=== PATIENT | female | born 1945 | race Two or more races ===

== ENCOUNTER → 2017-08-28 | Outpatient (CLI) | payer MEDICARE, OTHER ==
[~2017-08-28] MED LIST: CITA10TA59; HYDR12.56
[2017-08-28 14:51] LABS: Nucleated Red Blood Cells % 0.1 %
[2017-08-28 14:57] LABS: Basophils # (auto) 0.1 uL; Basophils % (auto) 1.7 % (0.0-2.0); Eosinophils # (auto) 0.7 uL; Eosinophils % (auto) 12.4 % (0.0-7.0); Hematocrit 40.1 % (36.0-46.0); Hemoglobin 13.5 g/dL (12.2-16.2); Lymphocytes # (auto) 1.3 uL; Lymphocytes % (auto) 23.3 % (10.0-50.0); Mean Corpuscular Hgb Conc. 33.6 g/dL (32.0-36.0); Mean Corpuscular Volume 86.3 fL (80.0-100.0); Monocytes # (auto) 0.2 uL; Neutrophils # (auto) 3.5 uL; Neutrophils % (auto) 59.6 % (37.0-80.0); Platelet Count (auto) 235 10^3/uL (140-450); Red Blood Cells 4.64 10^6/uL (4.0-5.20); Red Cell Distribution Width 14.3 % (11.8-14.3); White Blood Cell 5.8 10^3/uL (4.4-10.8)
[2017-08-28 15:09] LABS: Urine Bacteria NONE SEEN /hpf (None Seen); Urine Blood Negative /uL (Negative); Urine Mucus FEW (None Seen); Urine Specific Gravity 1.029 (1.001-1.035); Urine WBC 4 /hpf (0 - 5)
[2017-08-28 15:22] LABS: Albumin 3.5 g/dL (3.4-5.0); BUN/Creatinine Ratio 19.7; Bilirubin, Total 0.9 mg/dL (0.2-1.0); Calcium 9.1 mg/dL (8.5-10.1); Potassium 3.3 mmol/L (3.5-5.1); Total Protein 7.7 g/dL (6.4-8.2)
== END | disposition home or self-care (01) ==
LOC: LAB 14:26
PROVIDERS: ATTEND Family Medicine
DX: I10 Essential (primary) hypertension (principal); K21.9 Gastro-esophageal reflux disease without esophagitis; F32.4 Major depressive disorder, single episode, in partial remission; Z79.899 Other long term (current) drug therapy
CPT/HCPCS: 36415; 80053; 80061; 81001; 82306; 82607; 83036; 84443; 85025

== ENCOUNTER 2020-12-25 14:02 | Inpatient (IN) | payer MEDICARE, OTHER ==
[~2020-12-25] VITALS: Ht 157.5 cm; Wt 89.7 kg
[~2020-12-25 14:02] MED LIST changes: -CITA10TA59; +CITA10TA8
[2020-12-25 15:10] LABS: Basophils # (auto) 0 10 ^3/uL (0-0.2); Basophils % (auto) 0.6 % (0.0-2.0); Eosinophils # (auto) 0 10 ^3/uL (0-0.8); Eosinophils % (auto) 0.1 % (0.0-7.0); Hematocrit 42.3 % (36.0-46.0); Hemoglobin 14.2 g/dL (12.2-16.2); Lymphocytes # (auto) 0.8 10 ^3/uL (0.4-5.4); Lymphocytes % (auto) 19.1 % (10.0-50.0); Mean Corpuscular Hgb Conc. 33.7 g/dL (32.0-36.0); Mean Corpuscular Volume 83.1 fL (80.0-100.0); Monocytes # (auto) 0.3 10 ^3/uL (0-1.3); Neutrophils % (auto) 73.2 % (37.0-80.0); Nucleated Red Blood Cells % 0.1 %; Red Blood Cells 5.09 10^6/uL (4.0-5.20); Red Cell Distribution Width 15.7 % (11.8-14.3); White Blood Cell 4.1 10^3/uL (4.4-10.8)
[2020-12-25 15:31] LABS: Alanine Aminotransferase 45 U/L (13-56); Anion Gap 10 (5-15); Aspartate Aminotransferase 97 U/L (15-37); BUN/Creatinine Ratio 33.3; Blood Urea Nitrogen 26 mg/dL (7-18); Calcium 8.5 mg/dL (8.5-10.1); Carbon Dioxide 21 mmol/L (21-32); Chloride 103 mmol/L (98-107); GFR African American 93 mL/min; GFR Non-African American 77 mL/min; Glucose 118 mg/dL (74-106); Magnesium 2.6 mg/dL (1.6-2.6); Potassium 3.7 mmol/L (3.5-5.1); Sodium 134 mmol/L (136-145)
[2020-12-25 15:36] LABS: Alkaline Phosphatase 47 U/L (45-117); Bilirubin, Total 0.9 mg/dL (0.2-1.0); Total Protein 7.4 g/dL (6.4-8.2)
[2020-12-25] MEDS ORDERED: SODIUM CHLORIDE 0.9% 1,000 ML IVB ONE (15:45)
[2020-12-25] MEDS ORDERED: AZITHROMYCIN 500MG/ 250ML 250 ML IV ONE (15:45)
[2020-12-25] MEDS ORDERED: SODIUM CHLORIDE 0.9% 1,000 ML IV ONE (15:45)
[2020-12-25] MEDS ORDERED: DexAMETHasone SOD PHOS 10MG/1ML VIAL INJ IV ONE (16:00)
[2020-12-25 16:05] LABS: INR 1.04 (0.9-1.15); Partial Thromboplastin Time 27.3 sec (23.0-31.2)
[2020-12-25] MEDS: ASCORBIC ACID 500 MG TAB PO ONE ×2 (16:23→18:20)
[2020-12-25] MEDS: CHOLECALCIFEROL (VITD3) 2,000 UNIT CAP/TAB PO ONE ×2 (16:23→18:20)
[2020-12-25] MEDS: ZINC SULFATE 220mg CAP or TAB PO ONE ×2 (16:24→18:20)
[2020-12-25] MEDS: hydrOXYchloroQUINE SULFATE 200 MG TAB PO ONE ×2 (16:24→18:20)
[2020-12-25] MEDS ORDERED: ONDANSETRON HCL 4 MG/2 ML VIAL IV ONE (16:45)
[2020-12-25] MEDS ORDERED: traMADol HCL 50 MG TAB PO PRN (18:00)
[2020-12-25] MEDS ORDERED: NITROGLYCERIN 0.4 MG SL TAB SL PRN (18:00)
[2020-12-25] MEDS ORDERED: DEXTROSE (50%) 50ML SYRG IV PRN (18:00)
[2020-12-25] MEDS ORDERED: ALBUTEROL SULF HFA 90MCG INH 200DOSE IN PRN (18:00)
[2020-12-25] MEDS ORDERED: TEMAZEPAM 15 MG CAP PO PRN (18:00)
[2020-12-25] MEDS ORDERED: LACTULOSE 20Gm/30ML SOLN PO PRN (18:00)
[2020-12-25] MEDS ORDERED: ONDANSETRON HCL 4 MG/2 ML VIAL IV PRN (18:00)
[2020-12-25] MEDS ORDERED: MORPHINE SULF INJ 2 MG/ML SYRINGE 1ML IV PRN (18:00)
[2020-12-25] MEDS ORDERED: REMDESIVIR PER PHARMACY 0 ML IV SCH (18:00)
[2020-12-25] MEDS ORDERED: IPRATROPIUM BROMIDE HFA AER IN SCH (18:00)
[2020-12-25] MEDS: ZINC SULFATE 220mg CAP or TAB PO SCH (18:09)
[2020-12-25] MEDS: ASCORBIC ACID 1,000 MG TAB PO SCH (18:21)
[2020-12-25] MEDS: CHOLECALCIFEROL (VITD3) 2,000 UNIT CAP/TAB PO SCH (18:21)
[2020-12-25 19:11] LABS: Urine Bacteria FEW /hpf (None Seen); Urine Blood Negative /uL (Negative); Urine Mucus FEW (None Seen); Urine Specific Gravity 1.025 (1.001-1.035); Urine WBC 6 /hpf (0 - 5)
[2020-12-25 19:58] VITALS: BP 112/52
[2020-12-25] MEDS ORDERED: REMDESIVIR 200 MG in NS 210ml LOADING DOSE ADULT IV ONE (20:00)
[2020-12-25] MEDS: levoFLOXacin 500MG 100 ML IV SCH (21:55)
[2020-12-25 22:00] VITALS: BP 112/52
[2020-12-25] MEDS ORDERED: BUDESONIDE (INHALATION) 180 MCG IH IN SCH (22:00)
[2020-12-25] MEDS: ACCU-CHEK COMFORT CURVE STRIP VI SCH (22:00)
[2020-12-25] MEDS: ENOXAPARIN SOD 40 MG/0.4 ML SYRINGE SC SCH (22:02)
[2020-12-25] MEDS: FLORASTOR (S. BOULARDII) 250 MG CAP PO SCH (22:02)
[2020-12-26] VITALS (8 sets, daily range): BP systolic 90–106; BP diastolic 51–68
[2020-12-26] MEDS ORDERED: TRIATAB3 PO (04:50)
[2020-12-26] MEDS ORDERED: ZOLP10TA6 PO (04:50)
[2020-12-26] MEDS ORDERED: OMEP20TA PO (05:04)
[2020-12-26] MEDS: ACCU-CHEK COMFORT CURVE STRIP VI SCH ×2 (05:43→11:29)
[2020-12-26 06:41] LABS: Basophils # (auto) 0 10 ^3/uL (0-0.2); Basophils % (auto) 0.1 % (0.0-2.0); Eosinophils # (auto) 0 10 ^3/uL (0-0.8); Hematocrit 37.4 % (36.0-46.0); Hemoglobin 12.7 g/dL (12.2-16.2); Lymphocytes # (auto) 0.6 10 ^3/uL (0.4-5.4); Lymphocytes % (auto) 26.8 % (10.0-50.0); Mean Corpuscular Hemoglobin 28.1 pg (28.0-32.0); Mean Corpuscular Hgb Conc. 34.1 g/dL (32.0-36.0); Mean Corpuscular Volume 82.5 fL (80.0-100.0); Monocytes # (auto) 0.2 10 ^3/uL (0-1.3); Monocytes % (auto) 7.6 % (0.0-12.0); Neutrophils # (auto) 1.5 10 ^3/uL (1.6-8.6); Neutrophils % (auto) 65.5 % (37.0-80.0); Nucleated Red Blood Cells % 0.2 %; Red Blood Cells 4.53 10^6/uL (4.0-5.20); Red Cell Distribution Width 15.4 % (11.8-14.3); White Blood Cell 2.4 10^3/uL (4.4-10.8)
[2020-12-26 07:00] LABS: Potassium 3.3 mmol/L (3.5-5.1)
[2020-12-26 07:09] LABS: Albumin 2.4 g/dL (3.4-5.0); BUN/Creatinine Ratio 30.9; Calcium 7.8 mg/dL (8.5-10.1)
[2020-12-26 07:17] LABS: Bilirubin, Total 0.5 mg/dL (0.2-1.0)
[2020-12-26] MEDS: ZINC SULFATE 220mg CAP or TAB PO SCH (10:27)
[2020-12-26] MEDS: DexAMETHasone SOD PHOS 10MG/1ML VIAL INJ IV SCH (10:28)
[2020-12-26] MEDS: ASCORBIC ACID 1,000 MG TAB PO SCH (10:28)
[2020-12-26] MEDS: FLORASTOR (S. BOULARDII) 250 MG CAP PO SCH (10:28)
[2020-12-26] MEDS: PANTOPRAZOLE 40 MG TAB PO SCH (10:28)
[2020-12-26] MEDS: ENOXAPARIN SOD 40 MG/0.4 ML SYRINGE SC SCH ×2 (10:28→23:10)
[2020-12-26] MEDS: CHOLECALCIFEROL (VITD3) 2,000 UNIT CAP/TAB PO SCH (10:28)
[2020-12-26] MEDS ORDERED: FUROSEMIDE 20 MG/2 ML VIAL IV ONE (12:45)
[2020-12-26] MEDS: REMDESIVIR 100mg 100 MG in SODIUM CHL 0.9% 230 ML IV SCH (15:33)
[2020-12-26] MEDS: IPRATROPIUM BROMIDE HFA AER IN SCH ×2 (18:00→22:00)
[2020-12-26] MEDS: ACETAMINOPHEN 500 MG TAB PO PRN (18:33)
[2020-12-26] MEDS: levoFLOXacin 500MG 100 ML IV SCH (20:14)
[2020-12-26] MEDS: THROAT LOZENGES(CEPASTAT) MT PRN (21:53)
[2020-12-26] MEDS: BUDESONIDE (INHALATION) 180 MCG IH IN SCH (22:00)
[2020-12-26] MEDS ORDERED: BUDESONIDE (INHALATION) 180 MCG IH IN SCH (22:00)
[2020-12-26] MEDS: ZOLPIDEM TARTRATE 5 MG TAB PO PRN (23:10)
[2020-12-27 05:00] VITALS: BP 84/50
[2020-12-27] MEDS: IPRATROPIUM BROMIDE HFA AER IN SCH ×4 (06:00→22:11)
[2020-12-27] MEDS ORDERED: ALBUMIN 5% 250 ML IV ONE (06:45)
[2020-12-27] MEDS ORDERED: POTASSIUM CHL 20 Meq TABLET PO ONE (06:45)
[2020-12-27 09:00] VITALS: BP 88/57
[2020-12-27] MEDS: DexAMETHasone SOD PHOS 10MG/1ML VIAL INJ IV SCH (09:01)
[2020-12-27] MEDS: FUROSEMIDE 20 MG/2 ML VIAL IV SCH (09:01)
[2020-12-27] MEDS: CHOLECALCIFEROL (VITD3) 2,000 UNIT CAP/TAB PO SCH (09:02)
[2020-12-27] MEDS: ENOXAPARIN SOD 40 MG/0.4 ML SYRINGE SC SCH ×2 (09:02→22:19)
[2020-12-27] MEDS: ZINC SULFATE 220mg CAP or TAB PO SCH (09:02)
[2020-12-27] MEDS: PANTOPRAZOLE 40 MG TAB PO SCH (09:02)
[2020-12-27] MEDS: ASCORBIC ACID 1,000 MG TAB PO SCH (09:02)
[2020-12-27] MEDS: BUDESONIDE (INHALATION) 180 MCG IH IN SCH ×2 (12:06→22:10)
[2020-12-27] MEDS: ALBUTEROL SULF HFA 90MCG INH 200DOSE IN PRN ×2 (12:07→22:10)
[2020-12-27 13:00] VITALS: BP 93/57
[2020-12-27] MEDS: REMDESIVIR 100mg 100 MG in SODIUM CHL 0.9% 230 ML IV SCH (15:00)
[2020-12-27 17:00] VITALS: BP 95/60
[2020-12-27] MEDS: levoFLOXacin 500MG 100 ML IV SCH (20:03)
[2020-12-27 22:00] VITALS: BP 101/62
[2020-12-28] MEDS: ZOLPIDEM TARTRATE 5 MG TAB PO PRN ×2 (00:05→22:24)
[2020-12-28] MEDS: ACETAMINOPHEN 500 MG TAB PO PRN ×2 (00:30→22:39)
[2020-12-28 05:00] VITALS: BP 96/53
[2020-12-28] MEDS: ALBUTEROL SULF HFA 90MCG INH 200DOSE IN PRN (07:47)
[2020-12-28] MEDS: BUDESONIDE (INHALATION) 180 MCG IH IN SCH ×2 (07:47→18:25)
[2020-12-28] MEDS: IPRATROPIUM BROMIDE HFA AER IN SCH ×4 (07:48→22:39)
[2020-12-28] MEDS: FUROSEMIDE 20 MG/2 ML VIAL IV SCH (08:58)
[2020-12-28 09:00] VITALS: BP 87/53
[2020-12-28] MEDS: DexAMETHasone SOD PHOS 10MG/1ML VIAL INJ IV SCH (09:15)
[2020-12-28] MEDS: CHOLECALCIFEROL (VITD3) 2,000 UNIT CAP/TAB PO SCH (09:16)
[2020-12-28] MEDS: ZINC SULFATE 220mg CAP or TAB PO SCH (09:16)
[2020-12-28] MEDS: ENOXAPARIN SOD 40 MG/0.4 ML SYRINGE SC SCH ×2 (09:16→22:23)
[2020-12-28] MEDS: PANTOPRAZOLE 40 MG TAB PO SCH (09:16)
[2020-12-28] MEDS: ASCORBIC ACID 1,000 MG TAB PO SCH (09:16)
[2020-12-28] MEDS: MIDODRINE HCL 10 MG TAB PO SCH ×2 (11:33→18:08)
[2020-12-28 13:00] VITALS: BP 104/65
[2020-12-28] MEDS ORDERED: POTASSIUM CHL 10 Meq TABLET PO ONE (13:45)
[2020-12-28] MEDS: REMDESIVIR 100mg 100 MG in SODIUM CHL 0.9% 230 ML IV SCH (15:22)
[2020-12-28 17:00] VITALS: BP 112/71
[2020-12-28 22:00] VITALS: BP 117/60
[2020-12-28] MEDS: levoFLOXacin 500MG 100 ML IV SCH (22:23)
[2020-12-29 05:00] VITALS: BP 96/65
[2020-12-29 06:13] LABS: Basophils # (auto) 0 10 ^3/uL (0-0.2); Basophils % (auto) 0.2 % (0.0-2.0); Eosinophils # (auto) 0 10 ^3/uL (0-0.8); Eosinophils % (auto) 0.6 % (0.0-7.0); Hematocrit 36.6 % (36.0-46.0); Hemoglobin 12.5 g/dL (12.2-16.2); Lymphocytes % (auto) 18.7 % (10.0-50.0); Mean Corpuscular Hemoglobin 28.4 pg (28.0-32.0); Mean Corpuscular Hgb Conc. 34.1 g/dL (32.0-36.0); Mean Corpuscular Volume 83.3 fL (80.0-100.0); Monocytes # (auto) 0.4 10 ^3/uL (0-1.3); Monocytes % (auto) 6.5 % (0.0-12.0); Neutrophils # (auto) 4.1 10 ^3/uL (1.6-8.6); Red Blood Cells 4.39 10^6/uL (4.0-5.20); Red Cell Distribution Width 15.3 % (11.8-14.3); White Blood Cell 5.6 10^3/uL (4.4-10.8)
[2020-12-29] MEDS: MIDODRINE HCL 10 MG TAB PO SCH ×3 (06:20→17:36)
[2020-12-29 06:37] LABS: Potassium 3.5 mmol/L (3.5-5.1)
[2020-12-29 06:46] LABS: Albumin 2.2 g/dL (3.4-5.0); BUN/Creatinine Ratio 43.5; Bilirubin, Total 0.7 mg/dL (0.2-1.0); Total Protein 5.6 g/dL (6.4-8.2)
[2020-12-29] MEDS: BUDESONIDE (INHALATION) 180 MCG IH IN SCH ×2 (07:50→19:01)
[2020-12-29] MEDS: IPRATROPIUM BROMIDE HFA AER IN SCH ×4 (07:50→22:00)
[2020-12-29 09:00] VITALS: BP 133/76
[2020-12-29] MEDS: FUROSEMIDE 20 MG/2 ML VIAL IV SCH (09:44)
[2020-12-29] MEDS: ZINC SULFATE 220mg CAP or TAB PO SCH (09:44)
[2020-12-29] MEDS: DexAMETHasone SOD PHOS 10MG/1ML VIAL INJ IV SCH (09:44)
[2020-12-29] MEDS: ASCORBIC ACID 1,000 MG TAB PO SCH (09:44)
[2020-12-29] MEDS: PANTOPRAZOLE 40 MG TAB PO SCH (09:44)
[2020-12-29] MEDS: ENOXAPARIN SOD 40 MG/0.4 ML SYRINGE SC SCH ×2 (09:45→21:51)
[2020-12-29] MEDS: CHOLECALCIFEROL (VITD3) 2,000 UNIT CAP/TAB PO SCH (09:45)
[2020-12-29 13:00] VITALS: BP 90/52
[2020-12-29] MEDS: REMDESIVIR 100mg 100 MG in SODIUM CHL 0.9% 230 ML IV SCH (14:49)
[2020-12-29 17:00] VITALS: BP 102/58
[2020-12-29] MEDS: Ensure Enlive Strawberry 8oz Bottle PO SCH (18:21)
[2020-12-29] MEDS: ALBUTEROL SULF HFA 90MCG INH 200DOSE IN PRN (19:01)
[2020-12-29] MEDS: levoFLOXacin 500MG 100 ML IV SCH (20:25)
[2020-12-29] MEDS: ZOLPIDEM TARTRATE 5 MG TAB PO PRN (21:51)
[2020-12-29 22:00] VITALS: BP 101/54
[2020-12-30 05:00] VITALS: BP 99/65
[2020-12-30] MEDS: MIDODRINE HCL 10 MG TAB PO SCH ×3 (06:00→17:02)
[2020-12-30] MEDS: BUDESONIDE (INHALATION) 180 MCG IH IN SCH ×2 (08:56→19:02)
[2020-12-30] MEDS: ALBUTEROL SULF HFA 90MCG INH 200DOSE IN PRN ×2 (08:56→21:28)
[2020-12-30] MEDS: IPRATROPIUM BROMIDE HFA AER IN SCH ×4 (08:56→21:27)
[2020-12-30 09:00] VITALS: BP 109/60
[2020-12-30] MEDS: ZINC SULFATE 220mg CAP or TAB PO SCH (09:24)
[2020-12-30] MEDS: Ensure Enlive Strawberry 8oz Bottle PO SCH ×2 (09:24→17:50)
[2020-12-30] MEDS: FUROSEMIDE 20 MG/2 ML VIAL IV SCH (09:24)
[2020-12-30] MEDS: DexAMETHasone SOD PHOS 10MG/1ML VIAL INJ IV SCH (09:24)
[2020-12-30] MEDS: ENOXAPARIN SOD 40 MG/0.4 ML SYRINGE SC SCH ×2 (09:25→21:49)
[2020-12-30] MEDS: ASCORBIC ACID 1,000 MG TAB PO SCH (09:25)
[2020-12-30] MEDS: CHOLECALCIFEROL (VITD3) 2,000 UNIT CAP/TAB PO SCH (09:25)
[2020-12-30] MEDS: PANTOPRAZOLE 40 MG TAB PO SCH (09:25)
[2020-12-30 13:00] VITALS: BP 100/62
[2020-12-30] MEDS: REMDESIVIR 100mg 100 MG in SODIUM CHL 0.9% 230 ML IV SCH (14:50)
[2020-12-30 16:40] VITALS: BP 107/55
[2020-12-30 20:00] VITALS: BP 103/56
[2020-12-30] MEDS: levoFLOXacin 500MG 100 ML IV SCH (20:16)
[2020-12-30] MEDS: ZOLPIDEM TARTRATE 5 MG TAB PO PRN (21:50)
[2020-12-30 22:00] VITALS: BP 103/56
[2020-12-30] MEDS: THROAT LOZENGES(CEPASTAT) MT PRN (22:10)
[2020-12-31 05:00] VITALS: BP 100/63
[2020-12-31] MEDS: BUDESONIDE (INHALATION) 180 MCG IH IN SCH ×2 (06:56→23:23)
[2020-12-31] MEDS: ALBUTEROL SULF HFA 90MCG INH 200DOSE IN PRN ×2 (06:56→23:24)
[2020-12-31] MEDS: IPRATROPIUM BROMIDE HFA AER IN SCH ×4 (06:57→23:23)
[2020-12-31] MEDS: Ensure Enlive Strawberry 8oz Bottle PO SCH ×2 (08:20→17:40)
[2020-12-31 09:00] VITALS: BP 90/54
[2020-12-31] MEDS: ZINC SULFATE 220mg CAP or TAB PO SCH (09:16)
[2020-12-31] MEDS: PANTOPRAZOLE 40 MG TAB PO SCH (09:16)
[2020-12-31] MEDS: CHOLECALCIFEROL (VITD3) 2,000 UNIT CAP/TAB PO SCH (09:17)
[2020-12-31] MEDS: ASCORBIC ACID 1,000 MG TAB PO SCH (09:17)
[2020-12-31] MEDS: DexAMETHasone SOD PHOS 10MG/1ML VIAL INJ IV SCH (09:17)
[2020-12-31] MEDS: MIDODRINE HCL 10 MG TAB PO SCH ×2 (09:17→21:41)
[2020-12-31] MEDS: ENOXAPARIN SOD 40 MG/0.4 ML SYRINGE SC SCH ×2 (09:17→21:42)
[2020-12-31 12:57] VITALS: BP 95/58
[2020-12-31] MEDS ORDERED: ASCO10003 PO (15:02)
[2020-12-31] MEDS ORDERED: DEX4T PO (15:02)
[2020-12-31] MEDS ORDERED: ZINC220T6 PO (15:02)
[2020-12-31] MEDS ORDERED: ASPI-231 PO (15:02)
[2020-12-31] MEDS ORDERED: ALBUAER3 IN (15:02)
[2020-12-31] MEDS ORDERED: CHOL1CAP47 PO (15:02)
[2020-12-31 16:48] VITALS: BP 104/61
[2020-12-31] MEDS: ZOLPIDEM TARTRATE 5 MG TAB PO PRN (21:55)
[2020-12-31 22:00] VITALS: BP 101/50
[2021-01-01 05:00] VITALS: BP 97/58
[2021-01-01 07:00] LABS: Basophils # (auto) 0 10 ^3/uL (0-0.2); Basophils % (auto) 0.2 % (0.0-2.0); Eosinophils # (auto) 0 10 ^3/uL (0-0.8); Eosinophils % (auto) 0.2 % (0.0-7.0); Hematocrit 37.3 % (36.0-46.0); Hemoglobin 12.5 g/dL (12.2-16.2); Lymphocytes # (auto) 0.9 10 ^3/uL (0.4-5.4); Lymphocytes % (auto) 12.6 % (10.0-50.0); Mean Corpuscular Hemoglobin 28.4 pg (28.0-32.0); Mean Corpuscular Hgb Conc. 33.6 g/dL (32.0-36.0); Mean Corpuscular Volume 84.7 fL (80.0-100.0); Monocytes # (auto) 0.5 10 ^3/uL (0-1.3); Monocytes % (auto) 6.9 % (0.0-12.0); Neutrophils # (auto) 5.9 10 ^3/uL (1.6-8.6); Neutrophils % (auto) 80.1 % (37.0-80.0); Nucleated Red Blood Cells % 0.1 %; Red Blood Cells 4.41 10^6/uL (4.0-5.20); Red Cell Distribution Width 15.4 % (11.8-14.3); White Blood Cell 7.3 10^3/uL (4.4-10.8)
[2021-01-01 07:18] LABS: Potassium 3.9 mmol/L (3.5-5.1)
[2021-01-01 07:26] LABS: BUN/Creatinine Ratio 37.5; Calcium 8.3 mg/dL (8.5-10.1)
[2021-01-01] MEDS: Ensure Enlive Strawberry 8oz Bottle PO SCH ×2 (08:00→18:00)
[2021-01-01 09:00] VITALS: BP_SYST 103; BP_SYST 106; BP_DIAS 55; BP_DIAS 63
[2021-01-01] MEDS: DexAMETHasone SOD PHOS 10MG/1ML VIAL INJ IV SCH (09:14)
[2021-01-01] MEDS: ZINC SULFATE 220mg CAP or TAB PO SCH (09:15)
[2021-01-01] MEDS: MIDODRINE HCL 10 MG TAB PO SCH ×2 (09:15→22:02)
[2021-01-01] MEDS: PANTOPRAZOLE 40 MG TAB PO SCH (09:15)
[2021-01-01] MEDS: ASCORBIC ACID 1,000 MG TAB PO SCH (09:16)
[2021-01-01] MEDS: CHOLECALCIFEROL (VITD3) 2,000 UNIT CAP/TAB PO SCH (09:16)
[2021-01-01] MEDS: ENOXAPARIN SOD 40 MG/0.4 ML SYRINGE SC SCH ×2 (09:17→22:02)
[2021-01-01] MEDS: IPRATROPIUM BROMIDE HFA AER IN SCH ×4 (09:50→23:07)
[2021-01-01] MEDS: BUDESONIDE (INHALATION) 180 MCG IH IN SCH ×2 (10:56→23:07)
[2021-01-01 13:00] VITALS: BP_SYST 119; BP_SYST 124; BP_DIAS 65; BP_DIAS 78
[2021-01-01 17:00] VITALS: BP 105/60
[2021-01-01 22:00] VITALS: BP 108/64
[2021-01-01] MEDS: ZOLPIDEM TARTRATE 5 MG TAB PO PRN (22:03)
[2021-01-01] MEDS: ALBUTEROL SULF HFA 90MCG INH 200DOSE IN PRN (23:07)
[2021-01-02 05:40] VITALS: BP 115/56
[2021-01-02] MEDS: Ensure Enlive Strawberry 8oz Bottle PO SCH ×2 (08:00→18:25)
[2021-01-02] MEDS: BUDESONIDE (INHALATION) 180 MCG IH IN SCH ×2 (08:20→19:20)
[2021-01-02] MEDS: IPRATROPIUM BROMIDE HFA AER IN SCH ×3 (08:20→22:40)
[2021-01-02] MEDS: ALBUTEROL SULF HFA 90MCG INH 200DOSE IN PRN ×3 (08:20→19:20)
[2021-01-02 09:00] VITALS: BP 97/60
[2021-01-02] MEDS: DexAMETHasone SOD PHOS 10MG/1ML VIAL INJ IV SCH (09:11)
[2021-01-02] MEDS: ASCORBIC ACID 1,000 MG TAB PO SCH (09:12)
[2021-01-02] MEDS: MIDODRINE HCL 10 MG TAB PO SCH ×2 (09:12→21:44)
[2021-01-02] MEDS: ZINC SULFATE 220mg CAP or TAB PO SCH (09:12)
[2021-01-02] MEDS: PANTOPRAZOLE 40 MG TAB PO SCH (09:12)
[2021-01-02] MEDS: ENOXAPARIN SOD 40 MG/0.4 ML SYRINGE SC SCH ×2 (09:15→21:45)
[2021-01-02] MEDS: CHOLECALCIFEROL (VITD3) 2,000 UNIT CAP/TAB PO SCH (10:14)
[2021-01-02 13:00] VITALS: BP 97/59
[2021-01-02 15:39] VITALS: BP 97/59
[2021-01-02 17:00] VITALS: BP 112/68
[2021-01-02] MEDS ORDERED: FUROSEMIDE 20 MG/2 ML VIAL IV ONE (17:00)
[2021-01-02 22:00] VITALS: BP 105/61
[2021-01-02] MEDS: ZOLPIDEM TARTRATE 5 MG TAB PO PRN (23:39)
[2021-01-03 05:00] VITALS: BP 100/58
[2021-01-03] MEDS: BUDESONIDE (INHALATION) 180 MCG IH IN SCH ×2 (07:30→22:00)
[2021-01-03] MEDS: ALBUTEROL SULF HFA 90MCG INH 200DOSE IN PRN (07:30)
[2021-01-03] MEDS: IPRATROPIUM BROMIDE HFA AER IN SCH ×4 (07:30→22:00)
[2021-01-03] MEDS: Ensure Enlive Strawberry 8oz Bottle PO SCH ×2 (08:37→17:39)
[2021-01-03 09:00] VITALS: BP 96/62
[2021-01-03] MEDS ORDERED: ALBUMIN 25% 100 ML IV ONE (09:15)
[2021-01-03] MEDS: DexAMETHasone SOD PHOS 10MG/1ML VIAL INJ IV SCH (09:32)
[2021-01-03] MEDS: ZINC SULFATE 220mg CAP or TAB PO SCH (09:32)
[2021-01-03] MEDS: MIDODRINE HCL 10 MG TAB PO SCH (09:32)
[2021-01-03] MEDS: ENOXAPARIN SOD 40 MG/0.4 ML SYRINGE SC SCH ×2 (09:33→21:24)
[2021-01-03] MEDS: CHOLECALCIFEROL (VITD3) 2,000 UNIT CAP/TAB PO SCH (09:33)
[2021-01-03] MEDS: PANTOPRAZOLE 40 MG TAB PO SCH (09:33)
[2021-01-03] MEDS: ASCORBIC ACID 1,000 MG TAB PO SCH (09:33)
[2021-01-03] MEDS ORDERED: FUROSEMIDE 40 MG/4 ML VIAL IV ONE (10:15)
[2021-01-03 13:00] VITALS: BP 132/66
[2021-01-03 17:00] VITALS: BP 100/59
[2021-01-03] MEDS: THROAT LOZENGES(CEPASTAT) MT PRN (18:17)
[2021-01-03 21:34] VITALS: BP 103/69
[2021-01-03] MEDS: ZOLPIDEM TARTRATE 5 MG TAB PO PRN (23:01)
[2021-01-04 05:22] VITALS: BP 107/65
[2021-01-04] MEDS: IPRATROPIUM BROMIDE HFA AER IN SCH ×2 (07:30→13:57)
[2021-01-04] MEDS: BUDESONIDE (INHALATION) 180 MCG IH IN SCH (07:30)
[2021-01-04] MEDS: Ensure Enlive Strawberry 8oz Bottle PO SCH (08:59)
[2021-01-04 09:00] VITALS: BP 93/54
[2021-01-04] MEDS: PANTOPRAZOLE 40 MG TAB PO SCH (10:22)
[2021-01-04] MEDS: ZINC SULFATE 220mg CAP or TAB PO SCH (10:22)
[2021-01-04] MEDS: DexAMETHasone SOD PHOS 10MG/1ML VIAL INJ IV SCH (10:22)
[2021-01-04] MEDS: ASCORBIC ACID 1,000 MG TAB PO SCH (10:23)
[2021-01-04] MEDS: CHOLECALCIFEROL (VITD3) 2,000 UNIT CAP/TAB PO SCH (10:24)
[2021-01-04] MEDS: ENOXAPARIN SOD 40 MG/0.4 ML SYRINGE SC SCH (10:26)
[2021-01-04 13:00] VITALS: BP 107/68
[2021-01-04] MEDS: ALBUTEROL SULF HFA 90MCG INH 200DOSE IN PRN (13:57)
[2021-01-04 16:26] VITALS: BP 137/69
[2021-01-04 17:00] VITALS: BP 103/62
== END 2021-01-04 18:10 | disposition home health service (06) | DRG 177 ==
LOC: ER 14:02 → TELE 17:51 → TELE-EAST 20:05 → EAST 01-03 15:56
PROVIDERS: ADMIT Internal Medicine; ATTEND Internal Medicine
PROC: XW033E5 Introduction of Remdesivir Anti-infective into Peripheral Vein, Percutaneous Approach, New Technology Group 5 (ICD-10-PCS; principal; 2020-12-26)
DX: U07.1 COVID-19 (principal); J12.82 Pneumonia due to coronavirus disease 2019; J96.00 Acute respiratory failure, unspecified whether with hypoxia or hypercapnia; E44.0 Moderate protein-calorie malnutrition; J90 Pleural effusion, not elsewhere classified; E87.1 Hypo-osmolality and hyponatremia; E66.9 Obesity, unspecified; D72.819 Decreased white blood cell count, unspecified; R73.9 Hyperglycemia, unspecified; K21.9 Gastro-esophageal reflux disease without esophagitis; I10 Essential (primary) hypertension; F41.9 Anxiety disorder, unspecified; M19.90 Unspecified osteoarthritis, unspecified site; G47.00 Insomnia, unspecified; Z79.899 Other long term (current) drug therapy; Z99.81 Dependence on supplemental oxygen; Z68.34 Body mass index [BMI] 34.0-34.9, adult; Z90.49 Acquired absence of other specified parts of digestive tract
CPT/HCPCS: 36415; 36600; 71045; 80048; 80053; 81001; 82728; 82805; 82962; 83036; 83605; 83615; 83735; 83880; 84132; 84443; 84484; 85025; 85610; 85730; 87040; 93005; 94640; 96365; 96375; 97110; 97116; 97530; G0378; J1100; J1956; J2405; P9047

== ENCOUNTER 2023-04-24 19:07 | Emergency (ER) | payer MEDICARE, OTHER ==
[~2023-04-24] VITALS: Ht 167.6 cm; Wt 77.3 kg
[~2023-04-24 19:07] MED LIST changes: +ALBUAER3 IN; +ASCO10003 PO; +ASPI1TAB20 PO; +CHOL1CAP47 PO; -HYDR12.56; +OMEP20TA PO; +TRIATAB3 PO; +ZINC220T6 PO; +ZOLP10TA6 PO
[2023-04-24 19:10] VITALS: BP 118/68; RESP 18; O2SAT 98
[2023-04-24] MEDS ORDERED: NITROGLYCERIN 0.4 MG SL TAB SL PRN ×2 (19:15→23:30)
[2023-04-24 19:59] LABS: Basophils # (auto) 0 10 ^3/uL (0-0.2); Basophils % (auto) 0.7 % (0.0-2.0); Eosinophils # (auto) 0.3 10 ^3/uL (0-0.8); Eosinophils % (auto) 4.7 % (0.0-7.0); Hematocrit 39.4 % (36.0-46.0); Hemoglobin 13.1 g/dL (12.2-16.2); Lymphocytes # (auto) 3.1 10 ^3/uL (0.4-5.4); Lymphocytes % (auto) 50.7 % (10.0-50.0); Mean Corpuscular Hemoglobin 30.2 pg (28.0-32.0); Mean Corpuscular Hgb Conc. 33.2 g/dL (32.0-36.0); Mean Corpuscular Volume 91.2 fL (80.0-100.0); Monocytes # (auto) 0.3 10 ^3/uL (0-1.3); Monocytes % (auto) 5.4 % (0.0-12.0); Neutrophils # (auto) 2.3 10 ^3/uL (1.6-8.6); Neutrophils % (auto) 38.5 % (37.0-80.0); Nucleated Red Blood Cells % 0.2 %; Red Blood Cells 4.32 10^6/uL (4.0-5.20); White Blood Cell 6.1 10^3/uL (4.4-10.8)
[2023-04-24 20:13] LABS: INR 0.97 (0.9-1.15); Partial Thromboplastin Time 28.8 SEC (24.5-34.5); Prothrombin Time 10.2 sec (9.3-11.8)
[2023-04-24 20:20] LABS: Alanine Aminotransferase 19 U/L (7-40); Albumin 4.2 g/dL (3.2-4.8); Alkaline Phosphatase 127 U/L (46-116); Anion Gap 6 (5-15); Aspartate Aminotransferase 26 U/L (13-40); Calcium 9.6 mg/dL (8.7-10.4); Carbon Dioxide 26 mmol/L (20-30); Chloride 106 mmol/L (98-107); Glucose 118 mg/dL (74-106); Potassium 3.6 mmol/L (3.5-5.1); Sodium 138 mmol/L (136-145)
[2023-04-24 20:21] LABS: Bilirubin, Total 0.7 mg/dL (0.2-1.0); Total Protein 7.1 g/dL (5.7-8.2)
[2023-04-24 21:27] LABS: Magnesium 1.7 mg/dL (1.6-2.6)
[2023-04-24 23:11] VITALS: PULSE 66
[2023-04-24 23:24] LABS: BUN/Creatinine Ratio 17.4 (10.0-20.0); Blood Urea Nitrogen 12 mg/dL (9-23)
[2023-04-24] MEDS ORDERED: ONDANSETRON HCL 4 MG/2 ML VIAL IV PRN (23:30)
[2023-04-24] MEDS ORDERED: ACETAMINOPHEN 325 MG TAB PO PRN (23:30)
[2023-04-24] MEDS ORDERED: MORPHINE SULFATE INJ 2 MG/ml SYRG IV PRN (23:30)
[2023-04-24] MEDS ORDERED: ASPirin 81 mg TAB PO ONE (23:30)
[2023-04-25] MEDS ORDERED: TRIAMTERENE/HCTZ 37.5/25 MG CAP/TAB PO SCH (10:00)
[2023-04-25] MEDS ORDERED: ASPirin 81 mg TAB PO SCH (10:00)
[2023-04-25] MEDS ORDERED: ENOXAPARIN SOD 40 MG/0.4 ML SYRINGE SC SCH (10:00)
== END 2023-04-24 23:35 | disposition left against medical advice (07) ==
LOC: ER 19:07 → EDBD 19:07 → TELE 23:30 → UNDOADMIN 23:30 → ER 23:35 → TELE 23:35
DX: I20.9 Angina pectoris, unspecified (principal); K21.9 Gastro-esophageal reflux disease without esophagitis; I10 Essential (primary) hypertension; Z90.49 Acquired absence of other specified parts of digestive tract; Z79.899 Other long term (current) drug therapy
CPT/HCPCS: 36415; 71045; 80053; 83735; 83880; 84484; 85025; 85610; 85730; 93005; G0378

== ENCOUNTER 2024-06-05 19:09 | Emergency (ER) | payer MEDICARE, OTHER ==
[~2024-06-05] VITALS: Ht 154.9 cm; Wt 84.0 kg
--- NOTE | 2024-06-05 19:29 | ED.PDOC ---
SOB-HPI HPI Comments 78-year-old female who came to ER for chest wall pain. Patient had a ground level fall 5 days ago, and landed in badly at her left chest wall. Since then patient has been experiencing sharp episodes of left sided chest wall pain. Patient will then develop dry nonproductive cough and shortness of breath, which aggravates chest wall pain. Patient was seen at urgent care earlier today, x- ray revealed left-sided rib fractures, 5th and 7th ribs. Patient was sent to the ER for further evaluation and management. Vital signs were stable on arrival. Chief Complaint: Chest wall pain Time Seen by MD: 19:28 Primary Care Provider: ROBSON Gould notes: Nurses Notes Information Source: Patient Mode of Arrival: Wheelchair Severity: Moderate Timing: Days Duration: Intermittent Context: With Light Exertion PE Risk Factors: Trauma History of: None Prehospital treatment: None Modifying Factors: Nothing Associated Signs and Symptoms: Cough, Chest Pain Quality: Stabbing Location: Chest (L) If cough with SOB: Non-Productive Past Medical History PAST MEDICAL HISTORY: Anxiety, Arthritis, GERD, HTN Past Medical History (Other): Recent fall resulting in left-sided rib fracture Surgical History: Cholecystectomy [employer] SPECIALIST History: No Pertinent W[employer] SPECIALIST History Family History Family History: Unobtainable Social History Smoker: Non-Smoker Alcohol: Denies ETOH Use Drugs: Denies Drug Use Lives In: Home Constitutional: denies: chills, diaphoresis, fatigue, fever, malaise, sweats, weakness, others EENTM: denies: blurred vision, double vision, ear bleeding, ear discharge, ear drainage, ear pain, ear ringing, eye pain, eye redness, hearing loss, mouth pain, mouth swelling, nasal discharge, nose bleeding, nose congestion, nose pain, photophobia, tearing, throat pain, throat swelling, voice changes, others Respiratory: reports: cough, SOB at rest, shortness of breath; denies: hemoptysis, orthopnea, SOB with excertion, stridor, wheezing, others Cardiovascular: reports: chest pain; denies: dizzy spells, diaphoresis, Dyspnea on exertion, edema, irregular heart beat, left arm pain, lightheadedness, pal pitations, PND, syncope, others Gastrointestinal: denies: abdomen distended, abdominal pain, blood streaked bowels, constipated, diarrhea, dysphagia, difficulty swallowing, hematemesis, melena, nausea, poor appetite, poor fluid intake, rectal bleeding, rectal pain, vomiting, others Genitourinary: denies: abnormal vagina bleeding, burning, dyspareunia, dysuria, flank pain, frequency, hematuria, incontinence, pain, , vagina discharge, urgency, others Neurological: denies: dizziness, fainting, headache, left sided numbness, left sided weakness, numbness, paresthesia, pre-existing deficit, right sided numbness, right sided weakness, seizure, speech problems, tingling, tremors, weakness, others Musculoskeletal: denies: back pain, gout, joint pain, joint swelling, muscle pain, muscle stiffness, neck pain, others Integumetry: denies: bruises, change in color, change in hair/nails, dryness, laceration, lesions, lumps, rash, wounds, others Allergic/Immunocompromised: denies: Difficulty Healing, Frequent Infections, Hives, Itching, others Hematologic/Lymphatic: denies: anemia, blood clots, easy bleeding, easy b ruising, swollen glands, others Endocrine: denies: excessive hunger, excessive sweating, excessive thirst, excessive urination, flushing, intolerance to cold, intolerance to heat, unexplained weight gain, unexplained weight loss, others Psychiatric: denies: anxiety, bipolar disorder, depression, hopeless, panic disorder, schizophrenia, sleepless, suicidal, others Physical Exam General Appearance: Moderate Distress ([id number] distress due to left- sided rib pain concerns.), Obese HEENT: Normal ENT Inspection, Pharynx Normal, TMs Normal Neck: Full Range of Motion, Non-Tender, Normal, Normal Inspection Respiratory: Lungs Clear, No Accessory Muscle Use, No Respiratory Distress, Normal Breath Sounds, Other (Diffuse left-sided rib pain throughout ribs four through eight. Mild ecchymosis appreciated in a patchy fashion.) Cardiovascular: No Edema, No JVD, No Murmur, No Gallop, Normal Peripheral Pulses, Regular Rate/Rhythm Breast Exam: Deferred Gastrointestinal: No Organomegaly, Non Tender, No Pulsatile Mass, Normal Bowel Sounds, Soft Genitalia: Deferred Pelvic: Deferred Rectal: Deferred Extremities: No calf tenderness, Normal capillary refill, No pedal edema Musculoskeletal : Apperance: Normal Neurologic: Alert, No Motor Deficits, Normal Affect, Normal Mood, No Sensory Deficits Cerebellar Function: Normal Reflexes: Normal Skin: Dry, Normal Color, Warm Lymphatic: No Adenopathy Was a procedure done? Was a procedure done?: No Differential Dx Differential Diagnosis: URI, Other (Rib fractures) X-Ray, Labs, Meds, VS Comment PROCEDURE(s): LRIBS - L RIB X RAY REASON: FALL ORDER NUMBER(s): [id number], ACCESSION NUMBER(s): [id number] EXAMINATION: XY L RIB X RAY INDICATION: FALL COMPARISON: None TECHNIQUE: Frontal view of the chest and <<>> views of the <<>> ribs history FINDINGS: There are fractures of the 5th and 7th ribs. 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 No pneumothorax no pulmonary contusion. Scoliosis. Clavicles intact. Impression: Left-sided rib fractures without pneumothorax Discussed with the patient why urgent care sent the patient to our facility for further evaluation. Patient appears to have a viral upper respiratory illness and some rib fractures. I will send the patient home with some medication to hopefully aid her in her coughing complaints. Advised pain medication as needed for the rib fractures. Time of 1ST Reevaluation: 19:39 Reevaluation 1ST: Improved Consultation: PCP Patient Education/Counseling: Diagnosis, Treatment Family Education/Counseling: Diagnosis, Treatment, No Family Present Departure 1 Departure Time of Disposition: 19:40 Impression: Primary Impression: Fracture of rib of left side Additional Impression: Viral upper respiratory illness Disposition: HOME / SELF CARE / HOMELESS Condition: Stable Additional Instructions: Advised patient utilize medication as needed to hopefully aid in cough suppression. Advised pain medication as needed. Ice therapy as tolerated. e-Prescriptions Benzonatate (Benzonatate) 100 Mg Cap 1 CAP PO Q6HP PRN, #30 CAP Prov: ADRIA GUZMÁN PAC 06/05/24 Hydrocodone-Acetaminophen (Hydrocodone Bitartrate/AC 5-325 mg) 1 Tab Tab 1 TAB PO Q6HP PRN, #15 TAB Prov: ADRIA GUZMÁN PAC 06/05/24 Discharged With: Self, Spouse Critical Care Note Critical Care Time?: No Stability Stability form required: No Heart Score Heart Score: Heart Score Response (Comments) Value History N/A 0 EKG N/A 0 Age N/A 0 Risk Factors N/A 0 Troponin N/A 0 Total 0 I personally scribed for ADRIA GUZMÁN PAC ([email or web address]) on 06/05/24 at 19:29. Electronically submitted by Jarrod Agustin ([facility]). ADRIA GUZMÁN PAC Jun 05, 2024 19:29
[2024-06-05] MEDS ORDERED: HYDR-4902 PO (19:41)
[2024-06-05] MEDS ORDERED: BENZ100C97 PO (19:41)
[2024-06-05 21:35] VITALS: BP 119/65; PULSE 72; RESP 16; TEMP 98; O2SAT 98
[2024-06-05] MEDS: HYDROcodone-ACET 5/325MG TAB PO ONE (21:37)
== END 2024-06-05 21:40 | disposition home or self-care (01) ==
LOC: ER 19:09
DX: S22.32XA Fracture of one rib, left side, initial encounter for closed fracture (principal); J06.9 Acute upper respiratory infection, unspecified; B97.89 Other viral agents as the cause of diseases classified elsewhere; I10 Essential (primary) hypertension; K21.9 Gastro-esophageal reflux disease without esophagitis; M19.90 Unspecified osteoarthritis, unspecified site; Z90.49 Acquired absence of other specified parts of digestive tract; W18.09XA Striking against other object with subsequent fall, initial encounter; Y93.89 Activity, other specified; Y92.89 Other specified places as the place of occurrence of the external cause; Y99.8 Other external cause status